=== PATIENT | female | born 1950 | race African-American/Black ===

== ENCOUNTER → 2025-04-09 | Day surgery (SDC) | payer MEDICARE, MEDICAID ==
[2025-04-09] VITALS (7 sets, daily range): BP systolic 138–153; BP diastolic 59–67; PULSE 64–68; RESP 15–18; O2SAT 97–98
[~2025-04-09] MED LIST: ATOR20TA65 PO; FURO20TA4 PO; LEVO75TA7 PO; PANT20TA17 PO; POTA-203 PO; SACU1TAB7 PO
== END | disposition home or self-care (01) ==
LOC: RAD 09:28
PROVIDERS: ATTEND Internal Medicine Hematology & Oncology
DX: R91.1 Solitary pulmonary nodule (principal); R91.8 Other nonspecific abnormal finding of lung field; Z82.49 Family history of ischemic heart disease and other diseases of the circulatory system; Z88.8 Allergy status to other drugs, medicaments and biological substances; Z79.899 Other long term (current) drug therapy; Z98.890 Other specified postprocedural states
CPT/HCPCS: 32408; 71045; 88307